=== PATIENT | female | born 1995 | race Caucasian/White ===

== ENCOUNTER 2016-05-09 14:17 | Observation (INO) ==
--- NOTE | 2016-05-09 15:02 | OB/GYN Progress Note ---
Date of Encounter: 05/09/16 Time of Encounter: 14:58 - Assessment and Plan (1) 29 weeks gestation of Current Visit: Yes Status: Acute admit for observation (2) Abdominal pain during Current Visit: Yes Status: Acute R/o labor urinalysis Qualifiers: Trimester: third trimester Qualified Code(s): O26.893 - Other specified related conditions, third trimester; R10.9 - Unspecified abdominal pain (3) Vaginal discharge during in third trimester Current Visit: Yes Status: Acute vaginosis panel collected and sent to lab. Subjective - Subjective Principal diagnosis: cramping and vaginal discharge Interval history: Patient is 20yo at 29w3d with EDC July 22, 2016. Patient presents to labor and delivery with c/o cramping that started Monday. Patient states she called her physician and was told if symptoms didn't worsen to rest and follow up with scheduled appointment. Patient states cramping has became stronger and she had some discharge that was blood tinged. Patient's OB office was closed today so she was told to come to nearest hospital for evaluation. Patient reports +FM, denies dysuria or urinary frequency. Patient reports she has had kidney stones and frequent UTI's with current . Antepartum ROS: movement normal, contractions (that are irregular), no loss of fluid Objective - Vital Signs Vital Signs: Intake and Output 05/08/16 05/09/16 05/09/16 23:59 07:59 15:59 Other: Weight 107.9 kg Patient Weight 05/09/16 23:59 Weight 107.9 kg - Exam FHR: auscultation normal FHR comments: 140 bpm moderate variability appropriate for gestational age. Auscultation: bilateral: normal Abdomen: Present: normal appearance, soft Uterus: Present: normal, firm Cervical dilation: closed Cervix effacement: thick station: -3 Comments: Speculum exam: no blood noted, large amount of white discharge noted. Vaginosis panel collected.
[2016-05-09 15:12] LABS: Bilirubin,Urine Negative (Negative); Blood,Urine Negative (Negative); Clarity,Urine Cloudy (Clear); Color,Urine Yellow (Yellow); Glucose,Urine (UA) 100 mg/dL (Normal); Ketones,Urine Negative (Negative); Leukocyte Esterase,Urine Large (Negative); Nitrite,Urine Negative (Negative); PH,Urine 6.5 pH Units (5.0-8.0); Protein,Urine Trace mg/dL (Neg-Trace); Specific Gravity,Urine 1.016 (1.010-1.025); Urobilinogen,Urine Normal (Normal)
[2016-05-09 15:20] LABS: Bacteria,Urine Many per hpf (None-Few); RBC,Urine 0-3 per hpf (0-3); Squamous Epithelial Cell,Urine Moderate per lpf (None-Few); WBC,Urine 30-50 per hpf (0-3)
[2016-05-09 16:00] LABS: Gardnerella DNA ***DETECTED*** (Not Detect); Trichomonas DNA Not Detected (Not Detect)
[2016-05-09 16:01] LABS: Candida DNA Not Detected (Not Detect)
--- NOTE | 2016-05-09 16:13 | Discharge Summary ---
Date of Encounter: 05/09/16 Time of Encounter: 16:13 - Discharge Diagnosis (1) 29 weeks gestation of Priority: Secondary Status: Acute (2) Abdominal pain during Priority: Secondary Status: Acute Qualifiers: Trimester: third trimester Qualified Code(s): O26.893 - Other specified related conditions, third trimester; R10.9 - Unspecified abdominal pain (3) Vaginal discharge during in third trimester Priority: Secondary Status: Acute (4) Bacterial vaginosis Priority: Primary Status: Acute Comments: start Flagyl 500mg PO BID follow up as scheduled. - Discharge Medications Prescriptions: MetroNIDAZOLE [Flagyl] 500 mg PO BID #14 tablet Home Medications: Ondansetron ODT [Zofran ODT] 4 mg SL Q6HR PRN #10 tab.rapdis 04/26/16 [Rx] Esomeprazole Magnesium [Nexium] 20 mg PO DAILY 05/09/16 [History] MetroNIDAZOLE [Flagyl] 500 mg PO BID #14 tablet 05/09/16 [Rx] Vit Calc,Iron,Folic [ Vitamins] 1 tab PO DAILY 05/09/16 [ History] Allergies/Adverse Reactions: Allergies cefazolin [From Anc] Adverse Reaction (Verified 05/09/16 14:43) Vomiting Sulfa (Sulfonamide Antibiotics) Adverse Reaction (Verified 05/09/16 14:43) Hives Data Procedures and tests throughout hospitalization: Laboratory Tests 05/09/16 05/09/16 14:40 14:55 Urine Color Yellow Urine Clarity Cloudy A Urine pH 6.5 Ur Specific [place] 1.016 Urine Protein Trace Urine Glucose (UA) 100 H Urine Ketones Negative Urine Blood Negative Urine Nitrite Negative Urine Bilirubin Negative Urine Urobilinogen Normal Ur Leukocyte Esterase Large H Urine Microscopic RBC 0-3 Urine Microscopic WBC 30-50 H Ur Squamous Epith Cells Moderate H Urine Bacteria Many H Ur Culture Indicated? YES A Tosha species DNA Not Detected Gardnerella DNA Probe DETECTED A Trichomonas DNA Probe Not Detected Labs on day of discharge: Labs from last 24 hours 05/09/16 05/09/16 14:55 14:40 Urine Color Yellow Urine Clarity Cloudy A Urine pH 6.5 Ur Specific [place] 1.016 Urine Protein Trace Urine Glucose (UA) 100 H Urine Ketones Negative Urine Blood Negative Urine Nitrite Negative Urine Bilirubin Negative Urine Urobilinogen Normal Ur Leukocyte Esterase Large H Urine Microscopic RBC 0-3 Urine Microscopic WBC 30-50 H Ur Squamous Epith Cells Moderate H Urine Bacteria Many H Ur Culture Indicated? 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
== END 2016-05-09 16:25 | disposition home or self-care (01) ==
LOC: 1NENULAB
PROVIDERS: ADMIT Obstetrics & Gynecology; ATTEND Obstetrics & Gynecology

== ENCOUNTER 2016-05-15 22:23 | Observation (INO) ==
[2016-05-15 22:49] LABS: Bilirubin,Urine Negative (Negative); Blood,Urine Negative (Negative); Clarity,Urine Cloudy (Clear); Color,Urine Yellow (Yellow); Glucose,Urine (UA) 100 mg/dL (Normal); Ketones,Urine Negative (Negative); Leukocyte Esterase,Urine Small (Negative); Nitrite,Urine Negative (Negative); PH,Urine 6.5 pH Units (5.0-8.0); Protein,Urine Trace mg/dL (Neg-Trace); Specific Gravity,Urine 1.024 (1.010-1.025); Urobilinogen,Urine Normal (Normal)
[2016-05-15 22:52] LABS: Bacteria,Urine Moderate per hpf (None-Few); Hyaline Casts,Urine Few per lpf (None-Few); Squamous Epithelial Cell,Urine Many per lpf (None-Few); WBC,Urine 15-30 per hpf (0-3)
[2016-05-15 23:04] LABS: Mucus,Urine Few (Few)
[2016-05-15] MEDS ORDERED: Ringers Solution, Lactated 500 ML IVC ONE (23:34)
[2016-05-15] MEDS ORDERED: Ondansetron 4 MG/2 ML VIAL IVP PRN (23:34)
[2016-05-15] MEDS ORDERED: Ringers Solution, Lactated 1,000 ML IVC SCH (23:45)
[2016-05-16 00:11] LABS: Basophils # 0.1 K/mcL (0.0-0.2); Basophils % 0.5 %; Eosinophils # 0.1 K/mcL (0.0-0.6); Eosinophils % 0.5 %; Hematocrit 40.1 % (35.3-44.9); Hemoglobin 13.4 g/dL (11.5-15.4); Immature Granulocytes % 1.4 % (0-4); Lymphocytes # 1.7 K/mcL (0.6-4.6); Lymphocytes % 15.6 %; Mean Corpuscular HGB Conc 33.4 g/dL (31.6-35.5); Mean Corpuscular Volume 83.7 fL (83.0-100.0); Mean Platelet Volume 11.1 fL (9.4-12.4); Monocytes # 0.7 K/mcL (0.0-1.3); Monocytes % 6.7 %; Neutrophils # 8.4 K/mcL (1.6-8.9); Platelet Count 252 K/mcL (140-400); Red Blood Count 4.79 M/mcL (3.82-4.97); Red Cell Distribution Width 14.2 % (11.5-14.5); Segmented Neutrophils % 75.3 %
[2016-05-16 00:28] LABS: Large Platelets Present (Not Present); Platelet Estimate Normal (Normal)
[2016-05-16 00:43] LABS: Protein/Creatinine Ratio,Urine 0.13 mg/mg (0-0.20)
[2016-05-16 01:12] LABS: Alanine Aminotransferase 15 Units/L (0-55); Aspartate Amino Transferase 13 Units/L (5-34); BUN/Creatinine Ratio 11 (6-26); Blood Urea Nitrogen 6 mg/dL (7-20); Uric Acid 2.9 mg/dL (2.6-6.0); eGFR For African Americans > 60 (> 60); eGFR For Non-African Americans > 60 (> 60)
[2016-05-16 01:24] LABS: Lactate Dehydrogenase 150 Units/L (159-327)
--- NOTE | 2016-05-16 05:57 | OB/GYN Progress Note ---
Date of Encounter: 05/16/16 Time of Encounter: 05:54 - Assessment and Plan (1) 30 weeks gestation of Current Visit: Yes Status: Acute (2) UTI (urinary tract infection) in in third trimester Current Visit: Yes Status: Acute IV fluid, 2 g Rocephin (3) Nausea and vomiting in Current Visit: Yes Status: Acute IV Zofran given along with IV fluids Subjective - Subjective Principal diagnosis: 30 wk IUP Interval history: to L+D for cramping and headache w/ N+V. She receives care at an outside institution, no records available. She was seen on labor and delivery the week prior and diagnosed with Gardnerella and has been on Flagyl. She denies any vaginal bleeding. Positive movement. She has urinary frequency Antepartum ROS: new complaints, movement normal, contractions (Chronic and irregular), no loss of fluid, no vaginal bleeding Objective - Vital Signs Vital Signs: Intake and Output 05/15/16 05/15/16 05/16/16 15:59 23:59 07:59 Other: Weight 107.6 kg - Exam FHR: category 1 Comments: No CVA tenderness or abdominal tenderness present. Uterus is gravid and nontender. Urinalysis obtained - Labs Labs: Abnormal lab results Large Platelets Present (Not Present) A 05/15/16 23:50 BUN 6 mg/dL (7-20) L 05/16/16 00:48 Creatinine 0.56 mg/dL (0.57-1.11) L 05/16/16 00:48 Lactate Dehydrogenase 150 Units/L (159-327) L 05/16/16 00:48 Urine Clarity Cloudy (Clear) A 05/15/16 22:41 Urine Glucose (UA) 100 mg/dL (Normal) H 05/15/16 22:41 Ur Leukocyte Esterase Small (Negative) H 05/15/16 22:41 Urine Microscopic RBC 5-15 per hpf (0-3) H 05/15/16 22:41 Urine Microscopic WBC 15-30 per hpf (0-3) H 05/15/16 22:41 Ur Squamous Epith Cells Many per lpf (None-Few) H 05/15/16 22:41 Urine Bacteria Moderate per hpf (None-Few) H 05/15/16 22:41 Ur Culture Indicated? YES (NO) A 05/15/16 22:41 Urine Total Protein 23 mg/dL (1-14) H 05/15/16 23:50 - Allied health notes Allied health notes reviewed: nursing
== END 2016-05-16 02:55 | disposition home or self-care (01) ==
LOC: 1NENULAB
PROVIDERS: ADMIT Obstetrics & Gynecology; ATTEND Obstetrics & Gynecology

== ENCOUNTER 2016-06-27 19:18 | Observation (INO) ==
[2016-06-27 19:59] LABS: Bilirubin,Urine Negative (Negative); Blood,Urine Negative (Negative); Clarity,Urine Cloudy (Clear); Color,Urine Yellow (Yellow); Glucose,Urine (UA) Normal (Normal); Ketones,Urine Negative (Negative); Leukocyte Esterase,Urine Small (Negative); Nitrite,Urine Negative (Negative); PH,Urine 6.5 pH Units (5.0-8.0); Protein,Urine Trace mg/dL (Neg-Trace); Specific Gravity,Urine 1.022 (1.010-1.025); Urobilinogen,Urine Normal (Normal)
[2016-06-27 20:09] LABS: Bacteria,Urine Moderate per hpf (None-Few); Hyaline Casts,Urine None Seen per lpf (None-Few); Squamous Epithelial Cell,Urine Many per lpf (None-Few); WBC,Urine 15-30 per hpf (0-3)
--- NOTE | 2016-06-27 21:08 | OB Labor Progress Note ---
Date of Encounter: 06/27/16 Time of Encounter: 21:02 Labor Progress Note - Plan Plan: 20 y/o @ 36+3 wks presented to labor and delivery for a PTL eval, she was evaluated and found not to be in labor, cervix checked and closed, FHT CAT 1 ok for discharge
== END 2016-06-27 20:23 | disposition home or self-care (01) ==
LOC: 1NENULAB
PROVIDERS: ADMIT Student in an Organized Health Care Education/Training Program; ATTEND Student in an Organized Health Care Education/Training Program

== ENCOUNTER 2016-06-29 18:03 | Observation (INO) ==
[2016-06-29 18:27] LABS: Bilirubin,Urine Negative (Negative); Blood,Urine Negative (Negative); Clarity,Urine Cloudy (Clear); Color,Urine Yellow (Yellow); Glucose,Urine (UA) Normal (Normal); Ketones,Urine Negative (Negative); Leukocyte Esterase,Urine Negative (Negative); Nitrite,Urine Negative (Negative); PH,Urine 6.5 pH Units (5.0-8.0); Protein,Urine Negative (Neg-Trace); Urobilinogen,Urine Normal (Normal)
[2016-06-29 18:29] LABS: Bacteria,Urine Few per hpf (None-Few); Hyaline Casts,Urine None Seen per lpf (None-Few); RBC,Urine 0-3 per hpf (0-3); Squamous Epithelial Cell,Urine Many per lpf (None-Few)
--- NOTE | 2016-06-29 19:11 | OB/GYN Progress Note ---
Date of Encounter: 06/30/16 Time of Encounter: 18:56 - Assessment and Plan (1) 36 weeks gestation of Status: Acute -patient recently evaluated for similar complaint 2 days ago and found to be 4cm dilated. -currently 4cm dilated. Did have recent admission for labor on 06/2016 -No other complaints -Patient generally runs HR in 100's, BP 140's/80 -Is established at [facility] with Dr. Ramirez. Plan -Continue to monitor-toco, , HR, BP -Get UA -Consider starting fluids to help with tachycardia and HTN. -Discharge home if no cervical supervisor policy change clerks the next 2 hours. (2) Nasima-Danlos disease Status: Acute (3) Mitral valve prolapse determined by imaging Status: Acute (4) Kidney stones Status: Acute -Per patient -Patient urinating normally, denies dysuria, normal color, no CVA tenderness. -Does plan to have stent placement right after delivery Subjective - Subjective Principal diagnosis: Contractions Interval history: 20F, , 36w5d presents with lower abdominal pain/contractions. She was admitted on 06/21-06/24 at [facility] for contractions, she went from a cervical dialation of 0 to 4cm in an hour, given medicine to stop contractions and steroids. Patient seen at [facility] on 06/27/16 for a similar pain, measured 4 cm and discharged home. Today, patient states that she has been feeling contractions since this morning and the pain is getting worse. She admits to mild back pain that is not. Denies any other symptoms-LEMUS, Blurry vision, CP, SOB , diffused abdominal pain, CVA tenderness, urinary trouble or dysuria, vaginal discharge. Uncomplicated . Is taking , denies smoking, drinking , drug use. Only medication is vitamin. PMH: Nasima Danlos, mirtral valve prolapse, cholesysectomy, appendectomy, endometriosis requiring D&C when 14 y/o, Kidney stones. Per patient. GBS unknown, however did get abx. Blood type O negative. I examined this patient and my medical decision-making was reviewed with the CLAM BED LABORER/PA/Advanced Practice Nurse/Resident Physician. I agree with the documented findings, disposition and treatment plan as described except to the extent set forth below. Antepartum ROS: movement normal, no loss of fluid, no vaginal bleeding Objective - Vital Signs Vital Signs: Intake and Output 06/29/16 06/29/16 06/29/16 07:59 15:59 23:59 Other: Weight 109.8 kg Patient Weight 06/29/16 23:59 Weight 109.8 kg - Exam FHR: auscultation normal Auscultation: bilateral: normal Abdomen: Present: normal appearance, soft Uterus: Present: normal, firm Cervical dilation: 4cm, per nurse. - Labs Labs: Abnormal lab results Urine Clarity Cloudy (Clear) A 06/29/16 18:18 Urine Microscopic WBC 3-5 per hpf (0-3) H 06/29/16 18:18 Ur Squamous Epith Cells Many per lpf (None-Few) H 06/29/16 18:18
== END 2016-06-29 19:30 | disposition home or self-care (01) ==
LOC: 1NENULAB
PROVIDERS: ADMIT Obstetrics & Gynecology; ATTEND Obstetrics & Gynecology

== ENCOUNTER 2018-04-25 19:11 | Observation (INO) ==
[2018-04-25 16:05] LABS: Bilirubin,Urine Negative (Negative); Blood,Urine Negative (Negative); Clarity,Urine Cloudy (Clear); Color,Urine Yellow (Yellow); Glucose,Urine (UA) 100 mg/dL (Normal); Ketones,Urine Negative (Negative); Leukocyte Esterase,Urine Moderate (Negative); Nitrite,Urine Negative (Negative); PH,Urine 6.5 pH Units (5.0-8.0); Protein,Urine Negative (Neg-Trace); Urobilinogen,Urine Normal (Normal)
[2018-04-25 16:08] LABS: Bacteria,Urine Many per hpf (None-Few); RBC,Urine 0-3 per hpf (0-3); Squamous Epithelial Cell,Urine Many per lpf (None-Few); WBC,Urine 30-50 per hpf (0-3)
[2018-04-25 16:12] LABS: Amphetamine Screen,Urine Negative ng/mL (Cutoff=1000); Barbiturate Screen,Urine Negative ng/mL (Cutoff=200); Benzodiazepines Screen,Urine Negative ng/mL (Cutoff=200); Cannabinoid Screen,Urine Negative ng/mL (Cutoff = 50); Cocaine Screen,Urine Negative ng/mL (Cutoff= 300); Opiate Screen,Urine Negative ng/mL (Cutoff=300); Phencyclidine Screen,Urine Negative ng/mL (Cutoff=25)
[2018-04-25 16:59] LABS: Basophils # 0.1 K/mcL (0.0-0.2); Basophils % 0.6 %; Eosinophils # 0.1 K/mcL (0.0-0.6); Eosinophils % 1.3 %; Hematocrit 36.5 % (35.3-44.9); Immature Granulocytes % 1.3 % (0-4); Lymphocytes # 1.3 K/mcL (0.6-4.6); Lymphocytes % 14.8 %; Mean Corpuscular HGB Conc 32.9 g/dL (31.6-35.5); Mean Corpuscular Hemoglobin 28.2 pg (28.0-33.3); Mean Corpuscular Volume 85.9 fL (83.0-100.0); Mean Platelet Volume 10.5 fL (9.4-12.4); Monocytes # 0.6 K/mcL (0.0-1.3); Monocytes % 6.8 %; Neutrophils # 6.5 K/mcL (1.6-8.9); Platelet Count 216 K/mcL (140-400); Red Blood Count 4.25 M/mcL (3.82-4.97); Red Cell Distribution Width 14.6 % (11.5-14.5); Segmented Neutrophils % 75.2 %
[2018-04-25 17:17] LABS: BUN/Creatinine Ratio 9 (6-26); Blood Urea Nitrogen 5 mg/dL (6-20); Calcium 9.1 mg/dL (8.6-10.3); Carbon Dioxide 21 mEq/L (23-29); Chloride 109 mEq/L (98-107); Glucose 83 mg/dL (70-105); Osmolality,Calculated 278 (280-300); Sodium 136 mEq/L (136-145); eGFR For Non-African Americans > 60 (> 60)
[~2018-04-25 19:11] MED LIST: *HR* HYDROmorphone (PF) 1 MG/ML SYRINGE IVP ONE; Ondansetron 4 MG/2 ML VIAL IVP PRN; Ringers Solution, Lactated 1,000 ML IVC ONE
[2018-04-25] MEDS ORDERED: Ringers Solution, Lactated 500 ML ONE (19:13)
--- NOTE | 2018-04-25 20:53 | OB/GYN Progress Note ---
Date of Encounter: 04/25/18 Time of Encounter: 20:48 - Assessment and Plan (1) Flank pain Current Visit: Yes Status: Acute Concern for kidney stone. US shows no sign of obstruction. Pt reports pain has improved with rest and fluids. Nausea and vomiting resolved with phenergan. Pt reports feeling much better and desires to go home. Discharge home with return precautions. POC discussed with Dr. Murray (2) 26 weeks gestation of Current Visit: Yes Status: Acute (3) Acute cystitis during in second trimester Current Visit: Yes Status: Acute No fevers. Patient reports significant improvement of pain. Discharge home with Macrobid rx. Strict return precautions given. (4) Nausea with vomiting Current Visit: No Status: Acute Nausea and vomiting resolved with phenergan. Rx a few phenergan for home use. Discharge home. POC discussed with Dr. Murray. Qualifiers: Vomiting type: unspecified Vomiting Intractability: non-intractable Qualified Code(s): R11.2 - Nausea with vomiting, unspecified Subjective - Subjective Principal diagnosis: back pain Interval history: 22 year-old presenting at 26w2d with c/o severe left flack and lower back pain. She reports the pain is similar to pain that she has had with kidney stones in the past. She reports nausea today as well. No leaking or bleeding. She does have some sharp pain that radiates into her left lower abdomen. No contractions. Good FM. She denies dysuria, frequency, urgency. No other complaints. Antepartum ROS: movement normal, no loss of fluid, no vaginal bleeding, no contractions Objective - Vital Signs Vital Signs: Intake and Output 04/25/18 04/25/18 04/25/18 07:59 15:59 23:59 Other: Weight 101.9 kg Patient Weight 04/25/18 23:59 Weight 101.9 kg - Exam FHR: category 1 FHR comments: FHT reassuring for GA. Auscultation: bilateral: normal Abdomen: Present: soft, gravid Comments: no contractions on toco - Labs Labs: Abnormal lab results RDW 14.6 % (11.5-14.5) H 04/25/18 16:45 Chloride 109 mEq/L (98-107) H 04/25/18 16:45 Carbon Dioxide 21 mEq/L (23-29) L 04/25/18 16:45 BUN 5 mg/dL (6-20) L 04/25/18 16:45 Creatinine 0.55 mg/dL (0.60-1.20) L 04/25/18 16:45 Calculated Osmolality 278 (280-300) L 04/25/18 16:45 Urine Clarity Cloudy (Clear) A 04/25/18 15:45 Urine Glucose (UA) 100 mg/dL (Normal) H 04/25/18 15:45 Ur Leukocyte Esterase Moderate (Negative) H 04/25/18 15:45 Urine Microscopic WBC 30-50 per hpf (0-3) H 04/25/18 15:45 Ur Squamous Epith Cells Many per lpf (None-Few) H 04/25/18 15:45 Urine Bacteria Many per hpf (None-Few) H 04/25/18 15:45 Ur Culture Indicated? NO. (NO) A 04/25/18 15:45
[2018-04-25] MEDS ORDERED: *HR* Promethazine 25 MG/ML VIAL IVP ONE (20:58)
[2018-04-25] MEDS ORDERED: Ringers Solution, Lactated 1,000 ML IVC SCH (21:00)
[2018-04-25] MEDS ORDERED: Famotidine 20 MG/2 ML VIAL IVP ONE (21:17)
== END 2018-04-25 22:50 | disposition home or self-care (01) ==
LOC: 1NENULAB
PROVIDERS: ADMIT Registered Nurse; ATTEND Registered Nurse

== ENCOUNTER 2018-05-08 20:51 | Observation (INO) ==
[2018-05-08 17:51] LABS: Basophils # 0.1 K/mcL (0.0-0.2); Basophils % 0.5 %; Eosinophils # 0.1 K/mcL (0.0-0.6); Eosinophils % 1.1 %; Hematocrit 35.1 % (35.3-44.9); Hemoglobin 11.5 g/dL (11.5-15.4); Immature Granulocytes % 1.8 % (0-4); Lymphocytes # 1.7 K/mcL (0.6-4.6); Lymphocytes % 17.5 %; Mean Corpuscular HGB Conc 32.8 g/dL (31.6-35.5); Mean Corpuscular Hemoglobin 27.8 pg (28.0-33.3); Mean Corpuscular Volume 84.8 fL (83.0-100.0); Mean Platelet Volume 10.3 fL (9.4-12.4); Monocytes # 0.7 K/mcL (0.0-1.3); Neutrophils # 6.9 K/mcL (1.6-8.9); Platelet Count 237 K/mcL (140-400); Red Blood Count 4.14 M/mcL (3.82-4.97); Red Cell Distribution Width 13.6 % (11.5-14.5); Segmented Neutrophils % 72.1 %
[2018-05-08] MEDS: Ondansetron 4 MG/2 ML VIAL IVP PRN (17:51)
[2018-05-08 17:53] LABS: Bilirubin,Urine Negative (Negative); Blood,Urine Negative (Negative); Clarity,Urine Cloudy (Clear); Color,Urine Yellow (Yellow); Glucose,Urine (UA) 100 mg/dL (Normal); Ketones,Urine Negative (Negative); Leukocyte Esterase,Urine Moderate (Negative); Nitrite,Urine Negative (Negative); PH,Urine 6.5 pH Units (5.0-8.0); Protein,Urine 30 mg/dL (Neg-Trace); Specific Gravity,Urine 1.021 (1.010-1.025); Urobilinogen,Urine Normal (Normal)
[2018-05-08 17:55] LABS: Bacteria,Urine Many per hpf (None-Few); Squamous Epithelial Cell,Urine Many per lpf (None-Few)
[2018-05-08 18:05] LABS: Protein/Creatinine Ratio,Urine 0.17 mg/mg (0.00-0.20)
[2018-05-08 18:08] LABS: Amphetamine Screen,Urine Negative ng/mL (Cutoff=1000); Barbiturate Screen,Urine Negative ng/mL (Cutoff=200); Benzodiazepines Screen,Urine Negative ng/mL (Cutoff=200); Cannabinoid Screen,Urine Negative ng/mL (Cutoff = 50); Cocaine Screen,Urine Negative ng/mL (Cutoff= 300); Opiate Screen,Urine Negative ng/mL (Cutoff=300); Phencyclidine Screen,Urine Negative ng/mL (Cutoff=25)
[2018-05-08 18:14] LABS: Alanine Aminotransferase 6 Units/L (7-52); Aspartate Amino Transferase 11 Units/L (13-39); BUN/Creatinine Ratio 14 (6-26); Blood Urea Nitrogen 7 mg/dL (6-20); Lactate Dehydrogenase 144 Units/L (140-271); Uric Acid 3.2 mg/dL (2.3-7.6); eGFR For Non-African Americans > 60 (> 60)
[~2018-05-08 20:51] MED LIST changes: -*HR* HYDROmorphone (PF) 1 MG/ML SYRINGE IVP ONE; +Acetaminophen/Butalbital/CaffeineTABLET PO PRN; -Ondansetron 4 MG/2 ML VIAL IVP PRN; +Piperacillin/Tazobactam 3.375 GM in 0.9 % Sodium Chloride Mini Bag 100 ML IVPB SCH
--- NOTE | 2018-05-08 21:08 | OB/GYN History & Physical ---
Date of Encounter: 05/08/18 Time of Encounter: 18:00 Assessment and Plan (1) 28 weeks gestation of Current visit: Yes Status: Acute NST q shift (2) Pyelonephritis affecting in third trimester Current visit: Yes Status: Acute Admit for observation and antibiotics administration Zosyn q [address] Castrejon Anticipate d/c home tomorrow. History of Present Illness Chief complaint: back pain; vomiting HPI: Ms. Freeman is a 22 year old female 001 at 28 weeks 1 days gestation with an estimated date of of 07/30/18 dated by early ultrasound. She presents today with complaints of right CVA tenderness a 24 hours. She states she has been nauseous and vomiting from this time as well. She endorses good movement and denies leakage of fluid, vaginal bleeding, contractions. Her has been complicated by her anxiety disorder for which she takes buspar. She has been followed by Dr. Majano throughout her . records are available electronically and have been reviewed. Labs: O- Ab+ Rhogam GBS unk HIV- HepB unknown T. Pall- GC/CL- Rubella immune Varicella non-immune Past Med Surg Social Fam HX - Past Medical History Medical history: kidney stones Additional medical history: pcos. endometriosis Psychiatric history: no psych history - Past Surgical History Surgical History: appendectomy, cholecystectomy, other Additional surgical history: Appendectomy at 14 years old and for Cholecystectomy at 14 (2 weeks apart) - Social History Smoking Status: Never smoker Smokeless Tobacco Status: No Alcohol use: none Drug use: none - Family History Sister Adopted: Martelle: Denia Age: 18 Family Member Ethnicity: Non- Twin of Family Member: Yes, Fraternal Living Status: Still Living Hx Family Cardiac Disorders: No Hx Family Respiratory Disorders: No Hx Family Cancer: No Hx Family GI Disorders: No Hx Family Endocrine Disorder: Yes (CAH) Hx Family Neuromuscular Disorders: No Hx Family Neurologic Disorders: No Hx Family HEENT Disorders: No Hx Family Autoimmune Disorders: No Obstetrical History - Pregnancies : 2 Para: 1 Term: 1 (# 1: [birth year] 37wk , normal spontaneous vaginal delivery (),male, 7lbs 6oz born at [facility]. ) : 0 Ab's: 0 Livin Medications and Allergies Vit Calc,Iron,Folic [ Vitamins] 1 tab PO DAILY 05/09/16 [History] Ondansetron ODT [Zofran ODT] 4 mg SL Q6HR 04/25/18 [History] Allergy/AdvReac Type Severity Reaction Status Date / Time cefazolin [From Ancef] AdvReac Vomiting Verified 05/03/18 14:24 Sulfa (Sulfonamide AdvReac Hives Verified 05/03/18 14:24 Antibiotics) Review of System OB All systems PM: reviewed and no additional remarkable complaints except as stated Exam - Constitutional Constitutional: well developed, well nourished, mild distress, obese - HEENT HEENT: Normocephaly, Mucus Membranes Moist - Neck Neck exam: full ROM - Lungs Respiratory exam: CTAB - Cardiovascular Cardiovascular exam: RRR, +S1, +S2 - Breasts Breast: bilateral: normal - Abdomen Abdomen: Present: bowel sounds normal, gravid, non tender - Extremities Extremities exam: normal capillary refill, normal inspection, radial pulses palpable and symmetrical - Vulva Vulva: bilateral: normal - Vagina Vagina: Present: normal moisture - Uterus Uterus exam: Present: normal size, normal contour - Adnexa Adnexa: bilateral: normal - Anus/Rectum Anus/Rectum: Present: normal perianal skin Results Result Diagrams: 05/08/18 17:35 05/08/18 17:35 Abnormal lab results Hct 35.1 % (35.3-44.9) L 05/08/18 17:35 MCH 27.8 pg (28.0-33.3) L 05/08/18 17:35 Creatinine 0.51 mg/dL (0.60-1.20) L 05/08/18 17:35 AST 11 Units/L (13-39) L 05/08/18 17:35 ALT 6 Units/L (7-52) L 05/08/18 17:35 Urine Clarity Cloudy (Clear) A 05/08/18 17:35 Urine Protein 30 mg/dL (Neg-Trace) H 05/08/18 17:35 Urine Glucose (UA) 100 mg/dL (Normal) H 05/08/18 17:35 Ur Leukocyte Esterase Moderate (Negative) H 05/08/18 17:35 Urine Microscopic RBC 5-15 per hpf (0-3) H 05/08/18 17:35 Urine Microscopic WBC 5-15 per hpf (0-3) H 05/08/18 17:35 Ur Squamous Epith Cells Many per lpf (None-Few) H 05/08/18 17:35 Urine Bacteria Many per hpf (None-Few) H 05/08/18 17:35 Ur Culture Indicated? NO. (NO) A 05/08/18 17:35 Urine Total Protein 39 mg/dL (1-14) H 05/08/18 17:35 All other labs normal. - VTE Reasons for not Prescribing Prophylaxis: Treatment not Indicated - Low risk for VTE
[2018-05-09] MEDS: Ringers Solution, Lactated 1,000 ML IVC SCH ×3 (02:39→18:35)
[2018-05-09] MEDS: Piperacillin/Tazobactam 3.375 GM in 0.9 % Sodium Chloride Mini Bag 100 ML IVPB SCH ×3 (02:40→18:36)
[2018-05-09] MEDS: Ondansetron 4 MG/2 ML VIAL IVP PRN ×2 (02:55→15:00)
[2018-05-09] MEDS ORDERED: *HR* HYDROmorphone (PF) 1 MG/ML SYRINGE IVP ONE (14:41)
[2018-05-09] MEDS ORDERED: *HR* OxyCODONE/APAP 5/325 TABLET PO PRN (18:08)
--- NOTE | 2018-05-09 20:16 | Discharge Summary ---
Date of Encounter: 05/09/18 Time of Encounter: 20:17 - Discharge Diagnosis (1) 28 weeks gestation of Priority: Secondary Status: Chronic (2) Pyelonephritis affecting in third trimester Priority: Primary Status: Acute Comments: Patient has been given multiple doses of IV pain medication. She has not been febrile and her urine appears contaminated. Her pain has now radiated around and into her groin. She has a history of kidney stones with her last and states this pain is very reminiscent of the pain she had at that time. Her pain is controlled with PO Percocet, and she is requesting a prescription for phernergan in case the nausea recurs. - Discharge Medications Prescriptions: RX: OxyCODONE/APAP 5/325 [Percocet 5/325 MG] 1 each PO Q4HR PRN 3 Days #18 tablet PRN Reason: Pain Promethazine [Phenergan] 25 mg PO Q6HR PRN #20 tablet PRN Reason: Nausea Home Medications: RX: Vit Calc,Iron,Folic [ Vitamins] 1 tab PO DAILY 05/09/16 [History] RX: Ondansetron ODT [Zofran ODT] 4 mg SL Q6HR 04/25/18 [History] Promethazine [Phenergan] 25 mg PO Q6HR PRN #20 tablet 05/09/18 [Rx] RX: OxyCODONE/APAP 5/325 [Percocet 5/325 MG] 1 each PO Q4HR PRN 3 Days #18 tablet 05/09/18 [Rx] Allergies/Adverse Reactions: Allergy/AdvReac Type Severity Reaction Status Date / Time cefazolin [From Ancef] AdvReac Vomiting Verified 05/03/18 14:24 Sulfa (Sulfonamide AdvReac Hives Verified 05/03/18 14:24 Antibiotics) Data Procedures and tests throughout hospitalization: Laboratory Tests 05/08/18 05/08/18 05/08/18 17:35 17:35 17:35 WBC 9.6 RBC 4.14 Hgb 11.5 Hct 35.1 L MCV 84.8 MCH 27.8 L MCHC 32.8 RDW 13.6 Plt Count 237 MPV 10.3 Immature Gran % 1.8 Seg Neutrophils % 72.1 Lymphocytes % 17.5 Monocytes % 7.0 Eosinophils % 1.1 Basophils % 0.5 Neutrophils # 6.9 Lymphocytes # 1.7 Monocytes # 0.7 Eosinophils # 0.1 Basophils # 0.1 BUN Creatinine Est GFR ( Amer) Est GFR (Non-Af Amer) BUN/Creatinine Ratio Uric Acid AST ALT Lactate Dehydrogenase Urine Color Yellow Urine Clarity Cloudy A Urine pH 6.5 Ur Specific [place] 1.021 Urine Protein 30 H Urine Glucose (UA) 100 H Urine Ketones Negative Urine Blood Negative Urine Nitrite Negative Urine Bilirubin Negative Urine Urobilinogen Normal Ur Leukocyte Esterase Moderate H Urine Microscopic RBC 5-15 H Urine Microscopic WBC 5-15 H Ur Squamous Epith Cells Many H Urine Bacteria Many H Ur Culture Indicated? NO. A Urine Creatinine 226 Protein/Creatinin Ratio 0.17 Urine Total Protein 39 H Urine Opiates Screen Ur Barbiturates Screen Ur Phencyclidine Scrn Ur Amphetamines Screen U Benzodiazepines Scrn Urine Cocaine Screen U Marijuana (THC) Screen Ur Drug Screen Interp 05/08/18 05/08/18 17:35 17:36 WBC RBC Hgb Hct MCV MCH MCHC RDW Plt Count MPV Immature Gran % Seg Neutrophils % Lymphocytes % Monocytes % Eosinophils % Basophils % Neutrophils # Lymphocytes # Monocytes # Eosinophils # Basophils # BUN 7 Creatinine 0.51 L Est GFR ( Amer) > 60 Est GFR (Non-Af Amer) > 60 BUN/Creatinine Ratio 14 Uric Acid 3.2 AST 11 L ALT 6 L Lactate Dehydrogenase 144 Urine Color Urine Clarity Urine pH Ur Specific [place] Urine Protein Urine Glucose (UA) Urine Ketones Urine Blood Urine Nitrite Urine Bilirubin Urine Urobilinogen Ur Leukocyte Esterase Urine Microscopic RBC Urine Microscopic WBC Ur Squamous Epith Cells Urine Bacteria Ur Culture Indicated? Urine Creatinine Protein/Creatinin Ratio Urine Total Protein Urine Opiates Screen Negative Ur Barbiturates Screen Negative Ur Phencyclidine Scrn Negative Ur Amphetamines Screen Negative U Benzodiazepines Scrn Negative Urine Cocaine Screen Negative U Marijuana (THC) Screen Negative Ur Drug Screen Interp See Below Labs on day of discharge: none - Impressions ITS Impressions Retroperitoneum Ultrasound 05/09/18 11:30 IMPRESSION: Mild prominence of the bilateral renal collecting systems, right greater than left, increased since prior examination. This likely represents physiologic changes of rather than hydronephrosis. Postvoid residual of the bladder of 105 cc. Significantly distended bladder with prevoid volume of 702 cc. No evidence of wall thickening or bladder debris. Bilateral ureteral jets identified decreasing likelihood of ureteral obstruction. D/ / Jatinder Piña MD / Jatinder Piña MD Interpreting Provider: Jatinder Piña MD Date of admission: 05/08/18 17:21 Primary care physician: PCP NONE Discharging clinician: Carrie Murray Anticipated date of discharge: 05/09/18 - Patient Status Disposition: Home, Self-Care Condition: Good Overall status at discharge: patient is progressing back to baseline - Discharge Instructions Follow Up With: Daniele Majano MD [Partnered Physician] - Additional Instructions: LABOR AND DELIVERY DISCHARGE INSTRUCTIONS Signs and Symptoms to be Reported to your Doctor Immediately: * Sudden gush, continuous or intermittent lead of fluid from vagina (note the time of gush and color of fluid) * Onset of bright red vaginal bleeding with or without pain (if you had a vaginal exam during this visit you may notice some dark red spotting. This is normal.) * Lower abdominal cramping or backache that is premenstrual-like feeling. * More than 6 contractions in one hour. * Burning during urination, having to urinate more frequently or pain in your mid-back. * A change in the baby's activity. This could be an increase or decrease in activity. * Severe headache which does not go away with tylenol. * Sudden swelling in the face, hands, arms and/or legs. * Upper abdominal pain - sometimes associated with heartburn or nausea and is not relieved by Maalox, Mylanta or Tums. * Dizziness or blurred vision or visual disturbances (seeing stars/lights). * Kick Counts One hour after a meal, lay down on one side in a quiet place. Count the number of nasreen the baby moves during an hour. If less than 6 movements, notify your physician. Diet: *Force fluids - 8-10 tall glasses of fluid per day. May include popsicles and jello. 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 Her pain is controlled with PO analgesics and she has received multiple doses of IV antibiotics. She is discharged home on the above medications to followup Monday as scheduled. She is to return for worsening pain, nausea or vomiting not relieved by her home mediations. labor symptoms. Time Attestation: Total time spent providing and/or coordinating discharge services: Time Spent: Less than 30 minutes Exam - Constitutional Vitals: Temp Pulse Resp BP Pulse Ox 97.9 F 90 16 102/66 99 05/09/18 15:38 05/09/18 15:38 05/09/18 15:38 05/09/18 15:38 05/09/18 05:35 General appearance IM: A&O X 3 - Respiratory Respiratory exam: Present: CTAB - Cardiovascular Cardiovascular exam IM: Present: RRR - GI/Abdominal GI/Abdominal exam IM: normal bowel sounds - Extremities Exam Extremities exam IM: Absent: calf tenderness - VTE Reasons for not Prescribing Prophylaxis: Treatment not Indicated - Low risk for VTE
[2018-05-09 20:50] VITALS: BP 102/72
== END 2018-05-09 20:30 | disposition home or self-care (01) ==
LOC: 1NENULAB → 1NENUOBS 20:51
PROVIDERS: ADMIT Advanced Practice Midwife; ATTEND Advanced Practice Midwife

== ENCOUNTER → 2018-05-27 19:05 | Observation (INO) ==
[2018-05-27 17:27] LABS: Basophils # 0.1 K/mcL (0.0-0.2); Basophils % 0.5 %; Eosinophils # 0.1 K/mcL (0.0-0.6); Eosinophils % 1.1 %; Hematocrit 35.5 % (35.3-44.9); Hemoglobin 11.5 g/dL (11.5-15.4); Immature Granulocytes % 1.4 % (0-4); Immature Platelets 3.4 % (1.1-6.1); Lymphocytes # 1.9 K/mcL (0.6-4.6); Lymphocytes % 18.5 %; Mean Corpuscular HGB Conc 32.4 g/dL (31.6-35.5); Mean Corpuscular Hemoglobin 27.6 pg (28.0-33.3); Mean Corpuscular Volume 85.1 fL (83.0-100.0); Mean Platelet Volume 10.6 fL (9.4-12.4); Monocytes # 0.6 K/mcL (0.0-1.3); Monocytes % 6.1 %; Neutrophils # 7.6 K/mcL (1.6-8.9); Platelet Count 206 K/mcL (140-400); Red Blood Count 4.17 M/mcL (3.82-4.97); Red Cell Distribution Width 14.6 % (11.5-14.5); Segmented Neutrophils % 72.4 %
[2018-05-27 17:28] LABS: Bilirubin,Urine Negative (Negative); Blood,Urine Negative (Negative); Clarity,Urine Cloudy (Clear); Color,Urine Yellow (Yellow); Glucose,Urine (UA) Normal (Normal); Ketones,Urine Negative (Negative); Leukocyte Esterase,Urine Moderate (Negative); Nitrite,Urine Negative (Negative); PH,Urine 6.5 pH Units (5.0-8.0); Protein,Urine Negative (Neg-Trace); Specific Gravity,Urine 1.011 (1.010-1.025); Urobilinogen,Urine Normal (Normal)
[2018-05-27 17:30] LABS: Bacteria,Urine Many per hpf (None-Few); Hyaline Casts,Urine None Seen per lpf (None-Few); Squamous Epithelial Cell,Urine Many per lpf (None-Few); WBC,Urine 30-50 per hpf (0-3)
[2018-05-27 17:38] LABS: RBC,Urine 0-3 per hpf (0-3)
[2018-05-27 17:41] LABS: Amphetamine Screen,Urine Negative ng/mL (Cutoff=1000); Barbiturate Screen,Urine Negative ng/mL (Cutoff=200); Benzodiazepines Screen,Urine Negative ng/mL (Cutoff=200); Cannabinoid Screen,Urine Negative ng/mL (Cutoff = 50); Cocaine Screen,Urine Negative ng/mL (Cutoff= 300); Opiate Screen,Urine Negative ng/mL (Cutoff=300); Phencyclidine Screen,Urine Negative ng/mL (Cutoff=25)
--- NOTE | 2018-05-27 18:57 | Discharge Summary ---
Date of Encounter: 05/27/18 Time of Encounter: 18:59 - Discharge Diagnosis (1) NST (non-stress test) reactive Priority: Secondary Status: Acute Comments: FHR 150 bpm, moderate variability, +15x15 accels, no decels. (2) Back pain affecting in third trimester Priority: Secondary Status: Acute Comments: Admitted for observation due to back pain, nausea and vomiting with a history of kidney stones. Urinalysis returned normal, CBC WNL (3) 30 weeks gestation of Priority: Primary Status: Acute Comments: Admitted to observation for lower back pain in - Discharge Medications Home Medications: Vit Calc,Iron,Folic [ Vitamins] 1 tab PO DAILY 05/09/16 [History] Ondansetron ODT [Zofran ODT] 4 mg SL Q6HR 04/25/18 [History] Promethazine [Phenergan] 25 mg PO Q6HR PRN #20 tablet 05/09/18 [Rx] Oxycodone HCl 1 tab PO PRN PRN 05/27/18 [History] Allergies/Adverse Reactions: Allergy/AdvReac Type Severity Reaction Status Date / Time cefazolin [From Ancef] AdvReac Vomiting Verified 05/03/18 14:24 Sulfa (Sulfonamide AdvReac Hives Verified 05/03/18 14:24 Antibiotics) Data Procedures and tests throughout hospitalization: Laboratory Tests 05/27/18 05/27/18 05/27/18 17:15 17:25 17:25 WBC 10.5 RBC 4.17 Hgb 11.5 Hct 35.5 MCV 85.1 MCH 27.6 L MCHC 32.4 RDW 14.6 H Plt Count 206 MPV 10.6 Immature Gran % 1.4 Seg Neutrophils % 72.4 Lymphocytes % 18.5 Monocytes % 6.1 Eosinophils % 1.1 Basophils % 0.5 Neutrophils # 7.6 Lymphocytes # 1.9 Monocytes # 0.6 Eosinophils # 0.1 Basophils # 0.1 Immature Plt Fraction 3.4 Urine Color Yellow Urine Clarity Cloudy A Urine pH 6.5 Ur Specific [place] 1.011 Urine Protein Negative Urine Glucose (UA) Normal Urine Ketones Negative Urine Blood Negative Urine Nitrite Negative Urine Bilirubin Negative Urine Urobilinogen Normal Ur Leukocyte Esterase Moderate H Urine Microscopic RBC 0-3 Urine Microscopic WBC 30-50 H Ur Squamous Epith Cells Many H Urine Bacteria Many H Hyaline Casts None Seen Ur Culture Indicated? NO. A Urine Opiates Screen Negative Ur Barbiturates Screen Negative Ur Phencyclidine Scrn Negative Ur Amphetamines Screen Negative U Benzodiazepines Scrn Negative Urine Cocaine Screen Negative U Marijuana (THC) Screen Negative Ur Drug Screen Interp See Below Labs on day of discharge: Labs from last 24 hours 05/27/18 05/27/18 05/27/18 17:25 17:25 17:15 WBC 10.5 RBC 4.17 Hgb 11.5 Hct 35.5 MCV 85.1 MCH 27.6 L MCHC 32.4 RDW 14.6 H Plt Count 206 MPV 10.6 Immature Gran % 1.4 Seg Neutrophils % 72.4 Lymphocytes % 18.5 Monocytes % 6.1 Eosinophils % 1.1 Basophils % 0.5 Neutrophils # 7.6 Lymphocytes # 1.9 Monocytes # 0.6 Eosinophils # 0.1 Basophils # 0.1 Immature Plt Fraction 3.4 Urine Color Yellow Urine Clarity Cloudy A Urine pH 6.5 Ur Specific [place] 1.011 Urine Protein Negative Urine Glucose (UA) Normal Urine Ketones Negative Urine Blood Negative Urine Nitrite Negative Urine Bilirubin Negative Urine Urobilinogen Normal Ur Leukocyte Esterase Moderate H Urine Microscopic RBC 0-3 Urine Microscopic WBC 30-50 H Ur Squamous Epith Cells Many H Urine Bacteria Many H Hyaline Casts None Seen Ur Culture Indicated? NO. A Urine Opiates Screen Negative Ur Barbiturates Screen Negative Ur Phencyclidine Scrn Negative Ur Amphetamines Screen Negative U Benzodiazepines Scrn Negative Urine Cocaine Screen Negative U Marijuana (THC) Screen Negative Ur Drug Screen Interp See Below Date of admission: 05/27/18 16:22 Discharging clinician: Ritika Taylor Anticipated date of discharge: 05/27/18 - Patient Status Disposition: Home, Self-Care Condition: Good Functional capacity at discharge: independent ambulation Overall status at discharge: patient is progressing back to baseline - Discharge Instructions - Diet and Activity Activity: resume usual activities as tolerated Diet: regular diet 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 She is also complaining of nausea and vomiting today and does appear quite pale. She has a history of kidney stones and had stents placed during her last . Patient also states she tried taking Zofran for her nausea as well which did not help. Dr. Majano was in the room and assessed the patient and her back pain is just over the sacrum, no CVAT. Patient was given an ice pack for her discomfort and instructed to follow up with career advisor if pain continues. She was given IV fluids and IV Phenergan and was resting comfortably at time of discharge. Her urinalysis returned unremarkable and CBC was WNL. She is to follow up in the office with Dr. Majano as scheduled for routine care. Time Attestation: Total time spent providing and/or coordinating discharge services: Time Spent: Less than 30 minutes Exam - Constitutional General appearance IM: no acute distress, answers questions appropriately - Cardiovascular Cardiovascular exam IM: Present: RRR, +S1, +S2 - GI/Abdominal GI/Abdominal exam IM: normal bowel sounds, soft - Rectal Rectal exam: deferred - External exam: normal external exam - Extremities Exam Extremities exam IM: Present: full ROM, normal capillary refill, normal inspection - Neurological Exam Neurological exam: alert, normal gait, oriented X3 - VTE Reasons for not Prescribing Prophylaxis: Treatment not Indicated - Low risk for VTE
[~2018-05-27 19:05] MED LIST changes: +*HR* Promethazine 25 MG/ML VIAL IVP ONE; -Acetaminophen/Butalbital/CaffeineTABLET PO PRN; -Piperacillin/Tazobactam 3.375 GM in 0.9 % Sodium Chloride Mini Bag 100 ML IVPB SCH; -Ringers Solution, Lactated 1,000 ML IVC ONE; +Ringers Solution, Lactated 1,000 ML IVC SCH; +Ringers Solution, Lactated 1,000 ML ONE
== END | disposition home or self-care (01) ==
LOC: 1NENULAB
PROVIDERS: ADMIT Obstetrics & Gynecology; ATTEND Obstetrics & Gynecology

== ENCOUNTER → 2018-06-11 18:18 | Observation (INO) ==
[2018-06-11 15:42] LABS: Basophils # 0.1 K/mcL (0.0-0.2); Basophils % 0.6 %; Eosinophils # 0.3 K/mcL (0.0-0.6); Eosinophils % 2.5 %; Hematocrit 34.9 % (35.3-44.9); Hemoglobin 11.4 g/dL (11.5-15.4); Immature Granulocytes % 1.8 % (0-4); Lymphocytes # 1.7 K/mcL (0.6-4.6); Lymphocytes % 16.8 %; Mean Corpuscular HGB Conc 32.7 g/dL (31.6-35.5); Mean Corpuscular Hemoglobin 26.6 pg (28.0-33.3); Mean Corpuscular Volume 81.5 fL (83.0-100.0); Monocytes # 0.6 K/mcL (0.0-1.3); Monocytes % 6.1 %; Neutrophils # 7.3 K/mcL (1.6-8.9); Platelet Count 235 K/mcL (140-400); Red Blood Count 4.28 M/mcL (3.82-4.97); Red Cell Distribution Width 14.5 % (11.5-14.5); Segmented Neutrophils % 72.2 %
[2018-06-11 15:54] LABS: Amphetamine Screen,Urine Negative ng/mL (Cutoff=1000); Barbiturate Screen,Urine Negative ng/mL (Cutoff=200); Benzodiazepines Screen,Urine Negative ng/mL (Cutoff=200); Cannabinoid Screen,Urine Negative ng/mL (Cutoff = 50); Cocaine Screen,Urine Negative ng/mL (Cutoff= 300); Opiate Screen,Urine Negative ng/mL (Cutoff=300); Phencyclidine Screen,Urine Negative ng/mL (Cutoff=25)
[2018-06-11 15:56] LABS: Alanine Aminotransferase 6 Units/L (7-52); Aspartate Amino Transferase 9 Units/L (13-39); BUN/Creatinine Ratio 16 (6-26); Blood Urea Nitrogen 7 mg/dL (6-20); Lactate Dehydrogenase 116 Units/L (140-271); Uric Acid 3.2 mg/dL (2.3-7.6); eGFR For Non-African Americans > 60 (> 60)
--- NOTE | 2018-06-11 17:26 | OB/GYN Progress Note ---
Date of Encounter: 06/11/18 Time of Encounter: 17:23 - Assessment and Plan (1) 33 weeks gestation of Current Visit: Yes Status: Acute (2) Headache in Current Visit: Yes Status: Acute PIH labs negative, Discussed need to eat and have regular snacks and hydration during . Discharged home with PIH and labor instructions. Patient verbalizes understanding Qualifiers: Trimester: third trimester Qualified Code(s): O26.893 - Other specified related conditions, third trimester; R51 - Headache Subjective - Subjective Interval history: 33+0 weeks gestation presents to triage with complaints of headache, nausea, dizziness, right upper quadrant pain and elevated blood pressure 142/90 at home. Reports good movement, denies contractions, vaginal bleeding or leaking of fluid. Pt states she has only eaten a small soft pretzel today. Antepartum ROS: movement normal, no loss of fluid, no vaginal bleeding, no contractions Objective - Vital Signs Vital Signs: Intake and Output 06/11/18 06/11/18 06/11/18 07:59 15:59 23:59 Other: Weight 104.4 kg Patient Weight 06/11/18 23:59 Weight 104.4 kg - Exam FHR: auscultation normal FHR comments: Baseline 140 Abdomen: Present: soft, gravid - Labs Labs: Abnormal lab results Hgb 11.4 g/dL (11.5-15.4) L 06/11/18 14:53 Hct 34.9 % (35.3-44.9) L 06/11/18 14:53 MCV 81.5 fL (83.0-100.0) L 06/11/18 14:53 MCH 26.6 pg (28.0-33.3) L 06/11/18 14:53 Creatinine 0.45 mg/dL (0.60-1.20) L 06/11/18 14:53 AST 9 Units/L (13-39) L 06/11/18 14:53 ALT 6 Units/L (7-52) L 06/11/18 14:53 Lactate Dehydrogenase 116 Units/L (140-271) L 06/11/18 14:53
== END | disposition home or self-care (01) ==
LOC: 1NENULAB
PROVIDERS: ADMIT Advanced Practice Midwife; ATTEND Advanced Practice Midwife

== ENCOUNTER → 2018-06-14 18:21 | Observation (INO) ==
[2018-06-14 14:33] LABS: Bilirubin,Urine Negative (Negative); Blood,Urine Negative (Negative); Clarity,Urine Cloudy (Clear); Color,Urine Yellow (Yellow); Glucose,Urine (UA) Normal (Normal); Ketones,Urine Negative (Negative); Leukocyte Esterase,Urine Small (Negative); Nitrite,Urine Negative (Negative); PH,Urine 6.5 pH Units (5.0-8.0); Protein,Urine Trace mg/dL (Neg-Trace); Specific Gravity,Urine 1.011 (1.010-1.025); Urobilinogen,Urine Normal (Normal)
[2018-06-14 14:35] LABS: Bacteria,Urine Moderate per hpf (None-Few); Hyaline Casts,Urine None Seen per lpf (None-Few); Squamous Epithelial Cell,Urine Many per lpf (None-Few); WBC,Urine 15-30 per hpf (0-3)
[2018-06-14 14:53] LABS: Amphetamine Screen,Urine Negative ng/mL (Cutoff=1000); Barbiturate Screen,Urine Negative ng/mL (Cutoff=200); Benzodiazepines Screen,Urine Negative ng/mL (Cutoff=200); Cannabinoid Screen,Urine Negative ng/mL (Cutoff = 50); Cocaine Screen,Urine Negative ng/mL (Cutoff= 300); Opiate Screen,Urine Negative ng/mL (Cutoff=300); Phencyclidine Screen,Urine Negative ng/mL (Cutoff=25)
--- NOTE | 2018-06-14 17:10 | Discharge Summary ---
Date of Encounter: 06/14/18 Time of Encounter: 18:20 - Discharge Diagnosis (1) uterine contractions in third trimester, antepartum Priority: Secondary Status: Acute Comments: Patient reported irregular contractions since last night that become stronger this morning at 1030. SVE 1/50%/high on admission with no change in >4 hours. Brethine SQ given and on dose PO Procardia given while here. First dose of Steroids given and patient instructed to return for second dose tomorrow. (2) 33 weeks gestation of Priority: Primary Status: Acute Comments: Admitted for observation to rule out labor. (3) NST (non-stress test) reactive Priority: Secondary Status: Acute Comments: FHR 145 bpm, moderate variability, +15x15 accels, no decels. - Discharge Medications Home Medications: RX: Vit Calc,Iron,Folic [ Vitamins] 1 tab PO DAILY 05/09/16 [History] RX: Ondansetron ODT [Zofran ODT] 4 mg SL Q6HR 04/25/18 [History] Promethazine [Phenergan] 25 mg PO Q6HR PRN #20 tablet 05/09/18 [Rx] Pnv No.122/Iron/Folic Acid [ Multi Tablet] 1 tab PO DAILY 06/11/18 [History] raNITIdine HCl [Zantac] 1 tab PO BID 06/11/18 [History] Allergies/Adverse Reactions: Allergy/AdvReac Type Severity Reaction Status Date / Time cefazolin [From Ancef] AdvReac Vomiting Verified 06/11/18 14:51 Sulfa (Sulfonamide AdvReac Hives Verified 06/11/18 14:51 Antibiotics) Data Procedures and tests throughout hospitalization: Laboratory Tests 06/14/18 06/14/18 14:19 14:19 Urine Color Yellow Urine Clarity Cloudy A Urine pH 6.5 Ur Specific [place] 1.011 Urine Protein Trace Urine Glucose (UA) Normal Urine Ketones Negative Urine Blood Negative Urine Nitrite Negative Urine Bilirubin Negative Urine Urobilinogen Normal Ur Leukocyte Esterase Small H Urine Microscopic WBC 15-30 H Ur Squamous Epith Cells Many H Urine Bacteria Moderate H Hyaline Casts None Seen Ur Culture Indicated? NO. A Urine Opiates Screen Negative Ur Barbiturates Screen Negative Ur Phencyclidine Scrn Negative Ur Amphetamines Screen Negative U Benzodiazepines Scrn Negative Urine Cocaine Screen Negative U Marijuana (THC) Screen Negative Ur Drug Screen Interp See Below Labs on day of discharge: Labs from last 24 hours 06/14/18 06/14/18 14:19 14:19 Urine Color Yellow Urine Clarity Cloudy A Urine pH 6.5 Ur Specific [place] 1.011 Urine Protein Trace Urine Glucose (UA) Normal Urine Ketones Negative Urine Blood Negative Urine Nitrite Negative Urine Bilirubin Negative Urine Urobilinogen Normal Ur Leukocyte Esterase Small H Urine Microscopic WBC 15-30 H Ur Squamous Epith Cells Many H Urine Bacteria Moderate H Hyaline Casts None Seen Ur Culture Indicated? NO. A Urine Opiates Screen Negative Ur Barbiturates Screen Negative Ur Phencyclidine Scrn Negative Ur Amphetamines Screen Negative U Benzodiazepines Scrn Negative Urine Cocaine Screen Negative U Marijuana (THC) Screen Negative Ur Drug Screen Interp See Below Date of admission: 06/14/18 13:44 Primary care physician: Latonia Mar MD Discharging clinician: Ritika Taylor Anticipated date of discharge: 06/14/18 - Patient Status Disposition: Home, Self-Care Condition: Good Functional capacity at discharge: independent ambulation Overall status at discharge: patient is progressing back to baseline - Discharge Instructions Follow Up With: Latonia Mar MD [Primary Care Provider] - Additional Instructions: LABOR AND DELIVERY DISCHARGE INSTRUCTIONS Signs and Symptoms to be Reported to your Doctor Immediately: * Sudden gush, continuous or intermittent lead of fluid from vagina (note the time of gush and color of fluid) * Onset of bright red vaginal bleeding with or without pain (if you had a vaginal exam during this visit you may notice some dark red spotting. This is normal.) * Lower abdominal cramping or backache that is premenstrual-like feeling. * More than 6 contractions in one hour. * Burning during urination, having to urinate more frequently or pain in your mid-back. * A change in the baby's activity. This could be an increase or decrease in activity. * Severe headache which does not go away with tylenol. * Sudden swelling in the face, hands, arms and/or legs. * Upper abdominal pain - sometimes associated with heartburn or nausea and is not relieved by Maalox, Mylanta or Tums. * Dizziness or blurred vision or visual disturbances (seeing stars/lights). * Kick Counts One hour after a meal, lay down on one side in a quiet place. Count the number of times the baby moves during an hour. If less than 6 movements, notify your physician. Diet: *Force fluids - 8-10 tall glasses of fluid per day. May include popsicles and jello. *Limit caffeine - this includes chocolate, coffee, tea, any soft drink containing such as all natalia, Tesfaye Yellow and Mountain Dew RETURN TO LABOR AND DELIVERY ON 06/15/18 AT APPROXIMATELY 5:30PM FOR SECOND DOSE OF BETAMETHASONE. 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 On arrival she was found to be 1/50%/high (no change from 2 days ago). She did show irregular uterine contractions on the monitor. She was given one dose of Brethine SQ and one dose of Procardia PO with minimal change in contraction pattern. She did report some relief of pain after medications. Dr. Marina was consulted for further plan of care and patient was given the first dose of [place] and she is to return tomorrow for second dose. Time Attestation: Total time spent providing and/or coordinating discharge services: Time Spent: Less than 30 minutes Exam - Constitutional General appearance IM: A&O X 3, pleasant, no acute distress, answers questions appropriately - Respiratory Respiratory exam: Present: CTAB - Cardiovascular Cardiovascular exam IM: Present: RRR, +S1, +S2 - GI/Abdominal GI/Abdominal exam IM: normal bowel sounds, soft - Rectal Rectal exam: deferred - External exam: normal external exam - Extremities Exam Extremities exam IM: Present: full ROM, normal capillary refill, normal inspection - Neurological Exam Neurological exam: alert, normal gait, oriented X3 - VTE Reasons for not Prescribing Prophylaxis: Treatment not Indicated - Low risk for VTE
[~2018-06-14 18:21] MED LIST changes: -*HR* Promethazine 25 MG/ML VIAL IVP ONE; +Betamethasone Acet/SodPhos 6 MG/ML MDV IM SCH; +NIFEdipine 10 MG CAPSULE PO ONE; -Ringers Solution, Lactated 1,000 ML IVC SCH; -Ringers Solution, Lactated 1,000 ML ONE; +Terbutaline 1 MG/ML VIAL SQ ONE
== END | disposition home or self-care (01) ==
LOC: 1NENULAB
PROVIDERS: ADMIT Registered Nurse; ATTEND Registered Nurse

== ENCOUNTER → 2018-07-09 16:02 | Observation (INO) ==
[2018-07-09 16:11] LABS: Amphetamine Screen,Urine Negative ng/mL (Cutoff=1000); Barbiturate Screen,Urine Negative ng/mL (Cutoff=200); Benzodiazepines Screen,Urine Negative ng/mL (Cutoff=200); Cannabinoid Screen,Urine Negative ng/mL (Cutoff = 50); Cocaine Screen,Urine Negative ng/mL (Cutoff= 300); Opiate Screen,Urine Negative ng/mL (Cutoff=300); Phencyclidine Screen,Urine Negative ng/mL (Cutoff=25)
--- NOTE | 2018-07-09 16:38 | Discharge Summary ---
Date of Encounter: 07/09/18 Time of Encounter: 16:37 - Discharge Diagnosis (1) 37 weeks gestation of Priority: Primary Status: Acute Comments: Admitted to observation for complaint of decreased movement. (2) Decreased movement affecting management of Priority: Secondary Status: Acute Comments: Reactive NST, patient reports movement while here. Qualifiers: Fetus number: single or unspecified fetus Trimester: third trimester Qualified Code(s): O36.8130 - Decreased movements, third trimester, not applicable or unspecified (3) NST (non-stress test) reactive Priority: Secondary Status: Acute Comments: FHR 145 bpm, moderate variability, +15x15 accels, no decels. - Discharge Medications Prescriptions: No Action Ondansetron ODT [Zofran ODT] 4 mg SL Q6HR Promethazine [Phenergan] 25 mg PO Q6HR PRN #20 tablet PRN Reason: Nausea raNITIdine HCl [Zantac] 1 tab PO BID Tablet 1 tab PO DAILY Home Medications: Ondansetron ODT [Zofran ODT] 4 mg SL Q6HR 04/25/18 [History] Promethazine [Phenergan] 25 mg PO Q6HR PRN #20 tablet 05/09/18 [Rx] raNITIdine HCl [Zantac] 1 tab PO BID 06/11/18 [History] Tablet 1 tab PO DAILY 06/19/18 [History] Allergies/Adverse Reactions: Allergy/AdvReac Type Severity Reaction Status Date / Time cefazolin [From Ancef] AdvReac Vomiting Verified 06/27/18 20:08 Sulfa (Sulfonamide AdvReac Hives Verified 06/27/18 20:08 Antibiotics) Data Procedures and tests throughout hospitalization: Laboratory Tests 07/09/18 15:25 Urine Opiates Screen Negative Ur Barbiturates Screen Negative Ur Phencyclidine Scrn Negative Ur Amphetamines Screen Negative U Benzodiazepines Scrn Negative Urine Cocaine Screen Negative U Marijuana (THC) Screen Negative Ur Drug Screen Interp See Below Labs on day of discharge: Labs from last 24 hours 07/09/18 15:25 Urine Opiates Screen Negative Ur Barbiturates Screen Negative Ur Phencyclidine Scrn Negative Ur Amphetamines Screen Negative U Benzodiazepines Scrn Negative Urine Cocaine Screen Negative U Marijuana (THC) Screen Negative Ur Drug Screen Interp See Below Date of admission: 07/09/18 15:17 Primary care physician: Latonia Mar MD Discharging clinician: Ritika Taylor Anticipated date of discharge: 07/09/18 - Patient Status Disposition: Home, Self-Care Condition: Good Functional capacity at discharge: independent ambulation Overall status at discharge: patient is progressing back to baseline - Discharge Instructions Follow Up With: Latonia Mar MD [Primary Care Provider] - Additional Instructions: LABOR AND DELIVERY DISCHARGE INSTRUCTIONS Signs and Symptoms to be Reported to your Doctor Immediately: * Sudden gush, continuous or intermittent lead of fluid from vagina (note the time of gush and color of fluid) * Onset of bright red vaginal bleeding with or without pain (if you had a vaginal exam during this visit you may notice some dark red spotting. This is normal.) * Contractions that are 5 minutes apart (from the beginning of one contraction to the beginning of the next) and last 45-60 seonds; contractions that you can no longer walk, talk or laugh through. * A change in the baby's activity. This could be an increase or decrease in activity. * Severe headache which does not go away with tylenol. * Sudden swelling in the face, hands, arms and/or legs. * Upper abdominal pain - sometimes associated with heartburn or nausea and is not relieved by Maalox, Mylanta or Tums. * Kick Counts __ One hour after a meal, lay down on one side in a quiet place. Count the number of time the baby moves during an hour. If less than 6 movements, notify your physician Diet: *Force fluids, 8 to 10 tall glasses of fluid per day - may include popsicles and jello *Limit caffeine - this includes chocolate, coffee, tea, any soft drink containing such as all natalia, Tesfaye Yellow and Mountain Dew - Diet and Activity Activity: resume usual activities as tolerated Diet: regular diet Hospital Course PIGMENT WEIGHER Hospital course: Patient arrived to unit with complaint of decreased movement since yesterday when she fell. She reports only feeling one movement in an hour today. Reactive NST on arrival to unit, patient feeling movement while here. SVE 2/thick/-1 which is unchanged from yesterday. Patient denies fluid leakage and vaginal bleeding. She has a follow up appointment with Dr. Majano on Monday for routine care. Time Attestation: Total time spent providing and/or coordinating discharge services: Time Spent: Less than 30 minutes Exam - Constitutional General appearance IM: A&O X 3, pleasant, no acute distress, answers questions appropriately - Respiratory Respiratory exam: Present: CTAB - Cardiovascular Cardiovascular exam IM: Present: RRR, +S1, +S2 - GI/Abdominal GI/Abdominal exam IM: normal bowel sounds, soft - Rectal Rectal exam: deferred - Extremities Exam Extremities exam IM: Present: full ROM, normal capillary refill, normal inspection - Neurological Exam Neurological exam: alert, normal gait, oriented X3 - VTE Reasons for not Prescribing Prophylaxis: Treatment not Indicated - Low risk for VTE
== END | disposition home or self-care (01) ==
LOC: 1NENULAB
PROVIDERS: ADMIT Registered Nurse; ATTEND Registered Nurse

== ENCOUNTER → 2018-07-22 08:17 | Observation (INO) ==
[~2018-07-22 08:17] MED LIST changes: +*HR* Nalbuphine 10 MG/ML AMPUL IM ONE; -Betamethasone Acet/SodPhos 6 MG/ML MDV IM SCH; -NIFEdipine 10 MG CAPSULE PO ONE; -Terbutaline 1 MG/ML VIAL SQ ONE
--- NOTE | 2018-07-22 08:27 | OB/GYN Progress Note ---
Date of Encounter: 07/22/18 Time of Encounter: 07:05 - Assessment and Plan (1) 38 weeks gestation of Current Visit: Yes Status: Acute NST reactive No cervical change Therapeutic rest and discharge IOL added for tomorrow at 0800 - Dr Majano notified Discharge home with labor precautions Follow up PRN and for IOL tomorrow morning. (2) NST (non-stress test) reactive Current Visit: Yes Status: Acute Subjective - Subjective Principal diagnosis: Contractions Interval history: Ms Freeman is a at 38 weeks and 6 days that presents to triage with c/o contractions that began overnight. She states her contractions are uncomfortable and she is tired. She admits to intercourse prior to her arrival. She is a patient of Dr Majano. She states positive movement. She denies headache, vision changes, epigastric pain, leaking of fluid, vaginal discharge, and vaginal bleeding. Antepartum ROS: movement normal, contractions Objective - Vital Signs Vital Signs: Intake and Output 07/21/18 07/22/18 07/22/18 23:59 07:59 15:59 Other: Weight 106.594 kg Patient Weight 07/22/18 23:59 Weight 106.594 kg - Exam FHR: auscultation normal, category 1 Auscultation: bilateral: normal Abdomen: Present: normal appearance, soft, gravid Uterus: Present: normal. Absent: firm, tenderness Cervical dilation: 4 Cervix effacement: 70 station: -2
== END | disposition home or self-care (01) ==
LOC: 1NENULAB
PROVIDERS: ADMIT Advanced Practice Midwife; ATTEND Advanced Practice Midwife

== ENCOUNTER 2021-04-20 15:00 | Observation (INO) ==
[2021-04-20 15:36] LABS: Bilirubin,Urine Negative (Negative); Blood,Urine Negative (Negative); Clarity,Urine Clear (Clear); Color,Urine Light-Yellow (Yellow); Glucose,Urine (UA) Normal (Normal); Ketones,Urine Negative (Negative); Leukocyte Esterase,Urine Negative (Negative); Nitrite,Urine Negative (Negative); PH,Urine 6.5 pH Units (5.0-8.0); Protein,Urine Negative (Neg-Trace); Specific Gravity,Urine 1.019 (1.010-1.025); Urobilinogen,Urine Normal (Normal)
[2021-04-20 18:24] LABS: Basophils # 0.1 K/mcL (0.0-0.2); Basophils % 1.5 %; Eosinophils # 0.2 K/mcL (0.0-0.6); Eosinophils % 2.6 %; Hematocrit 47.1 % (35.3-44.9); Hemoglobin 15.2 g/dL (11.5-15.4); Lymphocytes # 3.2 K/mcL (0.6-4.6); Lymphocytes % 40.4 %; Mean Corpuscular HGB Conc 32.3 g/dL (31.6-35.5); Mean Corpuscular Hemoglobin 27.7 pg (28.0-33.3); Mean Corpuscular Volume 85.8 fL (83.0-100.0); Mean Platelet Volume 9.7 fL (9.4-12.4); Monocytes # 0.6 K/mcL (0.0-1.3); Monocytes % 7.3 %; Neutrophils # 3.8 K/mcL (1.6-8.9); Platelet Count 234 K/mcL (140-400); Red Blood Count 5.49 M/mcL (3.82-4.97); Red Cell Distribution Width 13.2 % (11.5-14.5); Segmented Neutrophils % 47.2 %
[2021-04-20 18:43] LABS: BUN/Creatinine Ratio 11 (6-26); Blood Urea Nitrogen 9 mg/dL (6-20); Calcium 9.7 mg/dL (8.6-10.3); Carbon Dioxide 24 mEq/L (23-29); Chloride 106 mEq/L (98-107); Glucose 86 mg/dL (70-105); Osmolality,Calculated 280 (280-300); Potassium 4.1 mEq/L (3.5-5.1); Sodium 136 mEq/L (136-145); eGFR For African Americans > 60 (> 60); eGFR For Non-African Americans > 60 (> 60)
[2021-04-20] MEDS ORDERED: 0.9 % Sodium Chloride 1,000 ML IVC ONE (18:48)
[2021-04-20] MEDS ORDERED: cefTRIAXone 1,000 MG in 0.9 % Sodium Chloride Mini Bag 100 ML IVPB ONE (18:49)
[2021-04-20] MEDS ORDERED: Ondansetron 4 MG/2 ML VIAL IVP ONE (18:51)
[2021-04-20] MEDS ORDERED: *HR* FentaNYL (PF) 100 MCG/2 ML VIAL IVP ONE (19:47)
[2021-04-20 21:13] LABS: Influenza A PCR Negative (Negative); Influenza B PCR Negative (Negative); Resp. Syncytial Virus PCR Negative (Negative)
[2021-04-20] MEDS ORDERED: Melatonin 3 MG TABLET PO PRN (21:29)
[2021-04-20] MEDS ORDERED: Naloxone 0.4 MG/ML INJ IVP PRN (21:29)
[2021-04-20] MEDS ORDERED: 0.9 % Sodium Chloride 1,000 ML IVC SCH (21:30)
[2021-04-20 21:46] LABS: SARS-CoV-2 by PCR (In House) Negative (Negative)
[2021-04-20] MEDS: Ondansetron 4 MG/2 ML VIAL IVP PRN (21:49)
[2021-04-20 21:54] LABS: Amphetamine Screen,Urine Negative ng/mL (Cutoff=1000); Barbiturate Screen,Urine Negative ng/mL (Cutoff=200); Benzodiazepines Screen,Urine Negative ng/mL (Cutoff=200); Cannabinoid Screen,Urine Positive ng/mL (Cutoff = 50); Cocaine Screen,Urine Negative ng/mL (Cutoff= 300); Opiate Screen,Urine Positive ng/mL (Cutoff=300); Phencyclidine Screen,Urine Negative ng/mL (Cutoff=25)
[2021-04-20] MEDS: Ketorolac 30 MG/ML VIAL IVP PRN (23:41)
[2021-04-21] MEDS ORDERED: *HR* Promethazine 25 MG/ML VIAL IM ONE ×2 (01:54→10:21)
[2021-04-21] MEDS: Ketorolac 30 MG/ML VIAL IVP PRN ×3 (05:49→20:31)
[2021-04-21] MEDS: Ondansetron 4 MG/2 ML VIAL IVP PRN (05:49)
[2021-04-21] MEDS: Ringers Solution, Lactated 1,000 ML IVC SCH ×2 (13:39→20:26)
[2021-04-21] MEDS: Prochlorperazine 10 MG/2 ML VIAL IVP PRN (13:39)
[2021-04-21] MEDS: cephALEXin 500 MG CAPSULE PO SCH ×2 (14:52→20:26)
[2021-04-21] MEDS ORDERED: cefTRIAXone 1,000 MG in 0.9 % Sodium Chloride Mini Bag 100 ML IVPB SCH (15:00)
[2021-04-22] MEDS: Ondansetron 4 MG/2 ML VIAL IVP PRN (02:27)
[2021-04-22] MEDS: Ringers Solution, Lactated 1,000 ML IVC SCH ×2 (03:02→10:05)
[2021-04-22] MEDS: Prochlorperazine 10 MG/2 ML VIAL IVP PRN (09:24)
[2021-04-22] MEDS: cephALEXin 500 MG CAPSULE PO SCH (09:26)
[2021-04-22 11:25] VITALS: BP 111/64; PULSE 81; TEMP 97.8; O2SAT 96
== END 2021-04-22 13:32 | disposition home or self-care (01) ==
LOC: EMEROOARM 15:00 → 4WAOSI 15:00 → SUATTDRO 20:17 → 4WAOSI 21:09
PROVIDERS: ADMIT Internal Medicine; ATTEND Student in an Organized Health Care Education/Training Program